=== PATIENT | male | born 1970 | race Caucasian/White ===

== ENCOUNTER → 2024-03-16 07:18 | Outpatient (REF) | payer OTHER, SELFPAY | LOC: HWRAD 07:18 | PROVIDERS: ATTENDING PHYSICIAN Physician Assistant Medical | DX: R91.1 Solitary pulmonary nodule (principal); Z77.22 Contact with and (suspected) exposure to environmental tobacco smoke (acute) (chronic); Z87.891 Personal history of nicotine dependence | CPT/HCPCS: 71250 ==

== ENCOUNTER 2024-11-14 13:53 | Emergency (ER) | payer OTHER, SELFPAY ==
[2024-11-14 13:56] VITALS: BP 149/92
--- NOTE | 2024-11-14 14:43 | ED.GENMED ---
History of Present Illness
General
Chief Complaint: Abdominal Pain
Source: patient
Exam Limitations: none
Time Seen by Provider: 11/14/24 14:40
Nursing documentation reviewed up to this point in time: agreed with
History of Present Illness
History of Present Illness:
53-year-old male with history of Crohn's disease, PUD, fatty liver, GERD, HLD, ileitis presents stating gradually worsening lower abdominal pain, worse on right over past 3 days. Had BM 3 days ago so took MOM last night and today had large non
bloody liquid stool. Woke with pain during last night. Denies f/c. No vomiting.
Pain worse with sitting, relieved with standing or laying.
Past History
Past History
ED Past Medical History: None
ED Past Surgical History: Orthopedic
Social History
Tobacco: Former smoker (quit 20 years ago)
Alcohol: Occasional
Drug: None
Personal:
Living: with family
Employment: Employed ([employer])
Family History
Family History: Other (n/c); Negative Early CAD or CAD
Review of Systems
Review of Systems
Allergies reviewed?: Yes
All Other Systems: ROS reviewed and negative except as documented in HPI and ROS
Constitutional: Denies fever
Respiratory: Denies trouble breathing
Cardiac: Denies chest pain
ABD/GI: Reports abdominal pain; Denies nausea, vomiting, diarrhea, bloody stools, black stools or anorexia
: Denies dysuria, frequency or difficulty voiding
Musculoskeletal: Reports no symptoms
Skin: Reports no symptoms
Neurological: Reports no symptoms
Phy Exam
Physical Exam
Physical Exam:
GENERAL: No acute distress. A&Ox3.
CONSTITUTIONAL: Afebrile.
EYES: clear, conjunctivae normal
ENMT: moist mucus membranes, Pharynx nl
RESPIRATORY: Regular respirations, nonlabored, lungs clear.
CARDIOVASCULAR: Regular rate and rhythm, no murmurs, no rubs.
GI: Soft, tender RLQ, normal BS
MUSCULOSKELETAL: Moves with ease. Well perfused.
SKIN: Warm, dry, pink
PSYCH: Normal mood and affect. Well kept, interactive and appropriate
NEUROLOGIC: Awake, alert and oriented. No focal neurological deficits
Course
Orders/Labs/Results
Orders:
Orders
11/14/24 14:50
CT Abd/Pel (IV only)-DH only Urgent
Comment:
Reason For Exam: mid to RLQ abd pain
11/14/24 15:11
Complete Blood Count/With Diff Urgent
Comprehensive Metabolic Panel Urgent
Lipase Urgent
11/14/24 18:24
Magnesium Citrate [Citroma] 300 ml PO ONCE ONE
Abnormal Lab Results
11/14/24
15:11
Absolute Neuts (auto) 7.2 H 10^3/uL
(1.4-6.5)
Absolute Monos (auto) 0.8 H 10^3/uL
(0.1-0.6)
Lymphocytes % 15.3 L %
(20.5-51.1)
Glucose 114 H mg/dl
(70-99)
11/14/24 15:11
11/14/24 15:11
Vital Signs
Initial and Last Documented VS:
Initial Vital Signs
Temp Pulse Resp BP Pulse Ox
98 F 89 18 149/92 99
11/14/24 13:56 11/14/24 13:56 11/14/24 13:56 11/14/24 13:56 11/14/24 13:56
Last Documented Vital Signs
Temp Pulse Resp BP Pulse Ox
98 F 72 16 139/77 98
11/14/24 13:56 11/14/24 16:30 11/14/24 16:30 11/14/24 16:30 11/14/24 16:30
MDM/Problems Addressed
Differential Diagnosis Includes:
appendicitis, diverticulitis, colitis, constipation
MDM/Problems Addressed:
53-year-old male with history of Crohn's disease, PUD, fatty liver, GERD, HLD, ileitis presents stating gradually worsening lower abdominal pain, worse on right over past 3 days. Had BM 3 days ago so took MOM last night and today had large non
bloody liquid stool. Woke with pain during last night. Denies f/c. No vomiting. Pain worse with sitting, relieved with standing or laying.
Afebrile, NAD
CBC normal
CMP normal
Lipase normal CT abdomen pelvis with IV only contrast radiology report read:
IMPRESSION:
1. Mild hepatosplenomegaly.
2. Bilateral nonobstructing intrarenal calculi.
3. Moderate amount of fecal material in the proximal colon.
4. Mild fusiform aneurysmal dilatation of the infrarenal abdominal aorta (2.1 cm AP dimension).
5. Moderate facet joint arthrosis at L4/L5 and L5/S1.
Patient given copy of his CAT scan, he will discuss the aneurysmal dilatation of the aorta with his family doctor.
Plan: Patient given a bottle of mag citrate, follow-up with GI
*Critical Care Note
Total Time (30-74mins, 75-104mins- exclusive of procedures): Not Applicable
ED Attending Note
-
Portions of this chart may have been created with voice recognition software.� Occasional wrong word or��sound alike� substitutions may have occurred due to the inherent limitations of voice recognition software.
Discharge Plan
Departure
Patient Disposition: Home (Routine Discharge)
Date of Disposition: 11/14/24
Time of Disposition: 18:25
Patient with high blood pressure during this ER visit?: No
Condition: Good
Discharge Problem:
Abdominal pain, Constipation
Instructions: Constipation, Adult (DC), Abdominal Pain
Prescriptions:
No Action
No Current Medications
0
Referrals:
David Sood MD [Family Provider] - As needed
Vargas Stephenson MD [Active] - Next open appointment
Activity Restrictions/Additional Instructions:
As we discussed, your CAT scan shows nothing worrisome. There is a large amount of stool in your colon
Try the mag citrate, drink the whole bottle and see if, after you have a good bowel movement or two, your belly does not feel better.
I gave you the name of a GI doctor to follow-up with if your abdominal pain persists
Interventions
Interventions:
*Risk Screen - Suicide Last Done: 11/14/24 13:56
*General Assessment Last Done: 11/14/24 13:56
*Neglect/Abuse Screening Last Done: 11/14/24 13:56
*ED- Fall Risk Assessment Last Done: 11/14/24 15:02
*ED COVID-19 Vaccine History Last Done: 11/14/24 15:02
*Nursing Disposition Last Done: 11/14/24 18:55
AE-Ofrqty-Lojcpcexma Assessment Last Done: 11/14/24 15:02
Discharge Date and Time
Discharge Date/Time: 11/14/24 18:55
Print Language: MONTSERRATIAN
[2024-11-14 15:01] VITALS: BMI 36.1
[2024-11-14 15:17] LABS: % Basophils 0.5 % (0-2); % Eosinophils 3.3 % (0-6); % Immature Granulocytes 0.2 % (0-0.5); % Lymphocytes 15.3 % (20.5-51.1); % Monocytes 7.7 % (1.7-9.3); Absolute Basophils 0.1 10^3/uL (0-0.2); Absolute Eosinophils 0.3 10^3/uL (0-0.7); Absolute Lymphocytes 1.5 10^3/uL (1.2-3.4); Absolute Monocytes 0.8 10^3/uL (0.1-0.6); Absolute Neutrophils 7.2 10^3/uL (1.4-6.5); Hematocrit 43.4 % (39.0-52.0); Hemoglobin 14.8 g/dL (13.0-18.0); Mean Corp Hgb Conc. 34.1 g/dL (33.0-37.0); Mean Corpuscular Hgb 29.9 pg (27.0-31.0); Mean Corpuscular Volume 87.7 fL (80.0-94.0); Mean Platelet Volume 10.1 fL (7.4-10.4); Nucleated Red Blood Cells % 0 % (-); Platelet Count 263 10^3/uL (130-400); Red Blood Cell Count 4.95 10^6/uL (4.70-6.10); Red Cell Dist. Width 12.9 % (11.5-14.5); White Blood Cell Count 9.8 10^3/uL (4.8-10.8)
[2024-11-14 15:31] LABS: ALT (SGPT) 27 U/L (0-50); AST (SGOT) 21 U/L (17-59); Albumin 4.1 g/dl (3.5-5.0); Alkaline Phosphatase 40 U/L (38-126); Blood Urea Nitrogen 18 mg/dl (9-20); Calcium 9.4 mg/dl (8.4-10.2); Carbon Dioxide 25 mmol/L (22-30); Chloride 106 mmol/L (98-107); Estimated Creatinine Clearance 118 ml/min; Glucose 114 mg/dl (70-99); Lipase 180 U/L (23-300); Potassium 4.6 mmol/L (3.5-5.1); Sodium 139 mmol/L (135-145); Total Bilirubin 0.7 mg/dl (0.2-1.3); Total Protein 6.8 g/dl (6.3-8.2); eGFR > 60.00
[2024-11-14 16:30] VITALS: BP 139/77
[2024-11-14] MEDS: CITROMA 300 ML PO (18:35)
== END 2024-11-14 18:55 | disposition home or self-care (01) ==
LOC: EMR 13:53
PROVIDERS: Registered Nurse; EMERGENCY PHYSICIAN Student in an Organized Health Care Education/Training Program; FAMILY PHYSICIAN Family Medicine
DX: K59.00 Constipation, unspecified (principal); E78.5 Hyperlipidemia, unspecified; N20.0 Calculus of kidney; K50.00 Crohn's disease of small intestine without complications; Z87.891 Personal history of nicotine dependence; Z87.11 Personal history of peptic ulcer disease
CPT/HCPCS: 99284; 74177; 80053; 83690; 85025; Q9967

== ENCOUNTER 2024-11-30 16:56 | Emergency (ER) | payer OTHER, SELFPAY ==
[2024-11-30 16:58] VITALS: BP 158/101
--- NOTE | 2024-11-30 18:24 | ED.MUSCINJ ---
HPI-Injury
General
Chief Complaint: Musculo-Skeletal Complaint
Source: patient
Exam Limitations: none
Time Seen by Provider: 11/30/24 18:08
Nursing documentation reviewed up to this point in time: agreed with
History of Present Illness-Injury
Initial Injury comments:
53-year-old male with no significant past medical history presents for persistent pain in his right ankle. He states 45 days ago he twisted his ankle that was sore and has been 'nagging' ever since but 1 week ago the pain became worse in the
posterior aspect around his Achilles and past couple of days his Achilles area has been swollen and more sore. He has difficulty walking due to the pain.
Past History
Past History
ED Past Medical History: None
ED Past Surgical History: Orthopedic
Social History
Tobacco: Former smoker (quit 20 years ago)
Alcohol: Occasional
Drug: None
Personal:
Living: with family
Employment: Employed ([employer])
Family History
Family History: Other (n/c); Negative Early CAD or CAD
Review of Systems
Review of Systems
Allergies reviewed?: Yes
All Other Systems: ROS reviewed and negative except as documented in HPI and ROS
Musculoskeletal: Reports other (Pain posterior asked right ankle/Achilles)
Skin: Reports no symptoms
Musculoskeletal Injury Exam
Musculoskeletal Injury Exam
Right Achilles:
Pain with Movement?: Moderate
Tender to palpation?: Moderate
Soft tissue swelling?: Mild
Range of motion: Full
Distal skin color and temperature: normal-warm & good color
Capillary Refill: normal
Normal distal neurovascular exam?: Yes
Phy Exam
Physical Exam
Physical Exam:
PHYSICAL EXAMINATION:
General: no apparent distress, not acutely ill
Neuro: alert and oriented.
Psychiatric: well kept. interactive and cooperative
Musculoskeletal: Right Achilles tendon with good tone, tender to palpation, mild swelling, no palpable masses. Pain with dorsi flexion. Negative Cheek test.
Skin: Warm, pink.
Injury Course
Orders/Labs/Results
Orders:
Orders
11/30/24 18:23
Ankle, Right 3 view CR [CR Ankle - Right Min 3 Views *] Urgent
Comment:
Reason For Exam: Pain and swelling Achilles
11/30/24 19:31
Ortho Boot Right- Treatment ONCE
Short or tall?: Tall
MDM/Problems Addressed
Differential Diagnosis Includes:
Ruptured Achilles, Achilles tendinitis
MDM/Problems Addressed:
53-year-old male with no significant past medical history presents for persistent pain in his right ankle. He states 45 days ago he twisted his ankle that was sore and has been 'nagging' ever since but 1 week ago the pain became worse in the
posterior aspect around his Achilles and past couple of days his Achilles area has been swollen and more sore. He has difficulty walking due to the pain.
Jennifer from ultrasound informs me that they do not do musculoskeletal ultrasounds, they are only done by the radiologist and there is no one here to do it at this time.
Achilles with good tone, very tender, neg Cheek test, do not suspect rupture, most likely tendinitis.
Ortho boot applied, distal neurovascular intact. Patient ambulating well.
Referred to orthopedics.
*Critical Care Note
Total Time (30-74mins, 75-104mins- exclusive of procedures): Not Applicable
ED Attending Note
-
Portions of this chart may have been created with voice recognition software.� Occasional wrong word or��sound alike� substitutions may have occurred due to the inherent limitations of voice recognition software.
Discharge Plan
Departure
Patient Disposition: Home (Routine Discharge)
Date of Disposition: 11/30/24
Time of Disposition: 19:43
Patient with high blood pressure during this ER visit?: No
Condition: Good
Discharge Problem:
Achilles tendinitis, right leg
Instructions: Achilles Tendinopathy (DC), Using Cold for Pain
Prescriptions:
No Action
No Current Medications
0
Referrals:
Adrian Gunter MD [Active] - Next open appointment
David Sood MD [Family Provider] -
Activity Restrictions/Additional Instructions:
As we discussed, wear the orthopedic boot if it helps. Whether it is the boot or one of your shoes, put a heel lift in to take some of the stress off of the Achilles tendon. You can probably find them in the Dr. Dickerson's section of the store or
pharmacy
Ibuprofen 600 mg, with food, needed for pain.
Call the orthopedic doctors office tomorrow and make next available appointment.
Interventions
Interventions:
*Risk Screen - Suicide Last Done: 11/30/24 16:59
*General Assessment Last Done: 11/30/24 21:04
*Neglect/Abuse Screening Last Done: 11/30/24 16:59
*ED- Fall Risk Assessment Last Done: 11/30/24 21:04
*Nursing Disposition Last Done: 11/30/24 21:05
ED-Musculoskeletal Assessment Last Done: 11/30/24 21:04
Discharge Date and Time
Discharge Date/Time: 11/30/24 21:06
Print Language: GERMAN
[2024-11-30 19:56] VITALS: BP 155/94
== END 2024-11-30 21:06 | disposition home or self-care (01) ==
LOC: EMR 16:56
PROVIDERS: EMERGENCY PHYSICIAN Student in an Organized Health Care Education/Training Program; FAMILY PHYSICIAN Family Medicine
DX: M76.61 Achilles tendinitis, right leg (principal); Z87.891 Personal history of nicotine dependence
CPT/HCPCS: 99283; 73610

== ENCOUNTER → 2024-12-06 15:23 | Outpatient (REF) | payer OTHER, SELFPAY | LOC: MRI 3T 15:23 | PROVIDERS: ATTENDING PHYSICIAN Student in an Organized Health Care Education/Training Program; FAMILY PHYSICIAN Family Medicine | DX: M25.571 Pain in right ankle and joints of right foot (principal) | CPT/HCPCS: 73721 ==

== ENCOUNTER 2025-02-16 09:57 | Outpatient (RCR) | payer OTHER, SELFPAY | END 2025-02-16 23:59 | disposition home or self-care (01) | LOC: RPT 09:57 | PROVIDERS: ATTENDING PHYSICIAN Student in an Organized Health Care Education/Training Program; FAMILY PHYSICIAN Family Medicine | DX: M76.61 Achilles tendinitis, right leg (principal); Z73.6 Limitation of activities due to disability | CPT/HCPCS: 97110; 97112; 97140; 97161 ==

== ENCOUNTER 2025-03-10 11:55 | Outpatient (RCR) | payer OTHER, SELFPAY | END 2025-03-10 23:59 | disposition home or self-care (01) | LOC: RPT 11:55 | PROVIDERS: ATTENDING PHYSICIAN Student in an Organized Health Care Education/Training Program; FAMILY PHYSICIAN Family Medicine | DX: M76.61 Achilles tendinitis, right leg (principal); Z73.6 Limitation of activities due to disability; M62.81 Muscle weakness (generalized) | CPT/HCPCS: 97110; 97112; 97140 ==